=== PATIENT | female | born 1940 | race Caucasian/White ===

== ENCOUNTER → 2016-11-12 09:49 | Day surgery (SDC) | payer MEDICARE ==
[~2016-11-12 09:49] MED LIST: Buffered Lidocaine 1% SYRIN* 3 ML/SYR SYRINGE INTRADERM ONE; Dexamethasone IV* 4 MG/ML 1 ML (4 MG) ONE; DiMENhydriNATE IV* 50 MG/ML VIAL IV PUSH PRN; Famotidine IV* 10 MG/ML 2 ML (20 mg) IV ONE; Famotidine IV* 10 MG/ML 2 ML (20 mg) ONE; KETAMINE HCL* 50 MG/ML 10 ML VIAL ONE; Lidocain 1% EPI 1:100,000 * 30 ML MDV ONE; Lidocaine 2% PF * 5 ML VIAL ONE; Lidocaine 4% TOPICAL* 50 ML TOP.SOLN ONE; Midazolam* 1 MG/ML 5 ML VIAL (5 MG) ONE; Morphine INJ* 2 MG/ML 1 ML SYRINGE IV PRN; Ondansetron INJ* 2 MG/ML VIAL ONE; Oxymetazoline 0.05% NASAL SPR* 15 ML BTL ONE; PROCHLORPERAZINE INJ 5 MG/ML 2 ML VIAL IV PRN; Propofol* 10 MG/ML 20 ML BTL IV PUSH ONE; Scopolamine 1.5 mg* PATCH TRANSDERM PRN; fentaNYL* 50 MCG/ML 2 ML VIAL (100 MCG VIAL) IV PRN; fentaNYL* 50 MCG/ML 2 ML VIAL (100 MCG VIAL) ONE; oxyCODONE/Acetamin 5/325 MG* TAB PO PRN
[2016-11-12 13:04] VITALS: BP 139/61
--- NOTE | 2016-11-13 02:40 | OP ---
DATE OF OPERATION: 11/12/16 - [facility] DATE OF : 44 SURGEON: Jens Cooper MD ANESTHESIOLOGIST: Dominic Copeland MD ANESTHESIA: General laryngeal mask airway anesthesia. PRE-OP DIAGNOSIS: Bilateral nasal polyposis. POST-OP DIAGNOSIS: Bilateral nasal polyposis. OPERATIVE PROCEDURE: Bilateral endoscopic nasal polypectomy. COMPLICATIONS: None. DISPOSITION: Good. SPECIMEN: Left polyp. DESCRIPTION OF PROCEDURE: The patient was taken to the operating room, placed in the supine position on the operating table, laryngeal mask airway anesthesia. She has a history of nasal polyposis, endoscopic sinus surgery in the past. Her nose was packed bilaterally with cottonoids impregnated with oxymetazoline and 4% lidocaine. After several minutes these were used, using the endoscope, nasal cavity was visualized and on the right, she had polyps in the ostiomeatal unit coming from the maxillary sinus and on the left the same but it was an antrochoanal polyp, although only posteriorly. All these were injected with 1% lidocaine with epinephrine. Using both Blakesley and the nasal debrider, I removed the polyps, debrided them, tried to pull them out of the maxillary sinus, but most importantly opened up her OMU and opened up her nasal cavity. The patient tolerated the procedure well with no complications, transferred to the recovery room in stable condition. [id number]/[facility] #: [id number] MELISA
== END | disposition home or self-care (01) ==
LOC: OR 09:49
PROVIDERS: ATTEND Otolaryngology
DX: J33.0 Polyp of nasal cavity (principal); R09.81 Nasal congestion; I10 Essential (primary) hypertension; I25.2 Old myocardial infarction; Z87.891 Personal history of nicotine dependence; I25.10 Atherosclerotic heart disease of native coronary artery without angina pectoris; R25.1 Tremor, unspecified
CPT/HCPCS: 87070; 87073; 87077; 87186; 87205; 88304; A9270-GY; J1100; J2250; J2405; J2704; J3010

== ENCOUNTER 2017-03-23 13:41 | Day surgery (SDC) | payer MEDICARE ==
[~2017-03-23 13:41] MED LIST changes: +Buffered Lidocaine 0.9% SYRIN* 5 ML/SYR SYRINGE INTRADERM ONE; -Buffered Lidocaine 1% SYRIN* 3 ML/SYR SYRINGE INTRADERM ONE; -Dexamethasone IV* 4 MG/ML 1 ML (4 MG) ONE; -DiMENhydriNATE IV* 50 MG/ML VIAL IV PUSH PRN; -Famotidine IV* 10 MG/ML 2 ML (20 mg) ONE; -KETAMINE HCL* 50 MG/ML 10 ML VIAL ONE; -Lidocain 1% EPI 1:100,000 * 30 ML MDV ONE; -Lidocaine 2% PF * 5 ML VIAL ONE; -Lidocaine 4% TOPICAL* 50 ML TOP.SOLN ONE; +Metoclopramide TAB* 10 MG PO ONE; -Midazolam* 1 MG/ML 5 ML VIAL (5 MG) ONE; -Morphine INJ* 2 MG/ML 1 ML SYRINGE IV PRN; -Ondansetron INJ* 2 MG/ML VIAL ONE; -Oxymetazoline 0.05% NASAL SPR* 15 ML BTL ONE; -PROCHLORPERAZINE INJ 5 MG/ML 2 ML VIAL IV PRN; -Propofol* 10 MG/ML 20 ML BTL IV PUSH ONE; -Scopolamine 1.5 mg* PATCH TRANSDERM PRN; -fentaNYL* 50 MCG/ML 2 ML VIAL (100 MCG VIAL) IV PRN; -fentaNYL* 50 MCG/ML 2 ML VIAL (100 MCG VIAL) ONE; -oxyCODONE/Acetamin 5/325 MG* TAB PO PRN
[2017-03-23] MEDS ORDERED: Famotidine IV* 10 MG/ML 2 ML (20 mg) ONE (13:55)
[2017-03-23] MEDS ORDERED: Buffered Lidocaine 0.9% SYRIN* 5 ML/SYR SYRINGE ONE (13:56)
[2017-03-23] MEDS ORDERED: Metoclopramide TAB* 10 MG ONE (13:56)
[2017-03-23] MEDS ORDERED: Lidocaine 2% PF * 5 ML VIAL ONE (15:02)
[2017-03-23] MEDS ORDERED: Midazolam* 1 MG/ML 5 ML VIAL (5 MG) ONE (15:02)
[2017-03-23] MEDS ORDERED: KETAMINE HCL* 50 MG/ML 10 ML VIAL ONE (15:02)
[2017-03-23] MEDS ORDERED: Dexamethasone IV* 4 MG/ML 1 ML (4 MG) ONE (15:02)
[2017-03-23] MEDS ORDERED: Propofol* 10 MG/ML 20 ML BTL IV PUSH ONE (15:02)
[2017-03-23] MEDS ORDERED: fentaNYL* 50 MCG/ML 2 ML VIAL (100 MCG VIAL) ONE (15:02)
[2017-03-23] MEDS ORDERED: Ondansetron INJ* 2 MG/ML VIAL ONE (15:02)
[2017-03-23] MEDS ORDERED: Oxymetazoline 0.05% NASAL SPR* 15 ML BTL ONE (15:44)
[2017-03-23] MEDS ORDERED: Lidocaine 4% TOPICAL* 50 ML TOP.SOLN ONE (15:45)
[2017-03-23] MEDS ORDERED: Lidocaine 1% MPF wEPI 200,000* 30 ML SDV ONE (15:45)
[2017-03-23] MEDS ORDERED: Dexamethasone IV* 4 MG/ML 5 ML VIAL (20 MG) ONE (15:45)
[2017-03-23] MEDS ORDERED: fentaNYL* 50 MCG/ML 2 ML VIAL (100 MCG VIAL) IV PRN (17:31)
[2017-03-23] MEDS ORDERED: Ondansetron INJ* 2 MG/ML VIAL IV PRN (17:31)
--- NOTE | 2017-03-24 06:00 | OP ---
DATE OF OPERATION: 03/23/17 - [facility] DATE OF : 44 SURGEON: Jens Cooper MD. ANESTHESIOLOGIST: Jalil Chavez MD ANESTHESIA: Laryngeal mask anesthesia. PRE-OP DIAGNOSES: Chronic maxillary ethmoidal sinusitis and nasal polyposis. POST-OP DIAGNOSES: Chronic maxillary ethmoidal sinusitis and nasal polyposis. OPERATIVE PROCEDURE: Bilateral endoscopic sinus surgery with nasal polypectomy , debridement of polyps from maxillary sinus, and anterior ethmoidectomies. COMPLICATIONS: None. SPECIMENS: Right nasal polyps and sinus contents to the left side. It was all debrided with a debrider. DISPOSITION: Good. Transferred to the recovery room in stable condition. DESCRIPTION OF PROCEDURE: The patient was taken to the operating room, placed in a supine position on the operating room table, maintained with laryngeal mask airway anesthesia. Her nose were packed bilaterally with cottonoids impregnated with oxymetazoline and 4% lidocaine. She was draped for the surgery. The procedure was done the same bilaterally using the nasal endoscope. The packs were removed and she had polyps protruding from her ostiomeatal units. The polyps and middle turbinates were injected with 1% lidocaine with 1:200,000 epinephrine using a combination of the Blakesley and the debrider, the polyps were pulled out of the maxillary sinuses and the skin was debrided of inflammatory tissue, the polyps were pulled out of the ethmoid region and the anterior bulla was widened. Once this was done, the Stammberger Sinu-Foam was mixed with water and dexamethasone and placed bilaterally lateral to the middle turbinates. The patient tolerated the procedure well, no complications, and transferred to the recovery room in stable condition. [id number]/[facility] #: [id number] MTDD
[2017-03-24 07:14] VITALS: BP 134/61
== END 2017-03-23 19:21 | disposition home or self-care (01) ==
LOC: OR 13:41
PROVIDERS: ATTEND Otolaryngology
DX: J32.2 Chronic ethmoidal sinusitis (principal); J32.0 Chronic maxillary sinusitis; J33.8 Other polyp of sinus; Z87.891 Personal history of nicotine dependence; Z79.899 Other long term (current) drug therapy; I10 Essential (primary) hypertension; I25.2 Old myocardial infarction
CPT/HCPCS: 88304; A9270-GY; J1100; J2001; J2250; J2405; J2704; J3010

== ENCOUNTER 2017-04-24 18:57 | Emergency (ER) | payer MEDICARE ==
[2017-04-24] MEDS ORDERED: methylPREDNISolone 125 MG* 2 ML VIAL IV ONE (20:24)
[2017-04-24] MEDS ORDERED: Famotidine TAB* 20 MG PO ONE (20:24)
[2017-04-24] MEDS ORDERED: diPHENhydraMINE IV* 50 MG/ML 1 ml VIAL (BENADRYL) IM ONE (20:25)
[2017-04-24] MEDS ORDERED: methylPREDNISolone 125 MG* 2 ML VIAL IM ONE (20:38)
--- NOTE | 2017-04-29 11:38 | UC ---
Skin Complaint HPI - History of Current Complaint Chief Complaint: UCSkin Time Seen by Provider: 04/24/17 20:18 Stated Complaint: SWOLLEN FACE Hx Obtained From: Patient Onset/Duration: Sudden Onset Skin Exposure Onset/Duration: Days Ago Onset Severity: Moderate Current Severity: Moderate Pain Intensity: 0 Pain Scale Used: 0-10 Numeric - Allergy/Home Medications Allergies/Adverse Reactions: Allergies Allergy/AdvReac Type Severity Reaction Status Date / Time Codeine Allergy Unknown Verified 04/24/17 19:50 Reaction Details cats Allergy Itching Uncoded 04/24/17 19:50 dogs Allergy Itching Uncoded 04/24/17 19:50 Enviromental Allergy Unknown Uncoded 04/24/17 19:50 Reaction Details Review of Systems Constitutional: Negative Skin: Rash Eyes: Negative ENT: Negative Respiratory: Negative Cardiovascular: Negative Gastrointestinal: Negative Genitourinary: Negative Motor: Negative Neurovascular: Negative Musculoskeletal: Negative Neurological: Negative Psychological: Negative All Other Systems Reviewed And Are Negative: Yes PMH/Surg Hx/FS Hx/Imm Hx Previously Healthy: Yes - Surgical History Surgical History: Yes Surgery Procedure, Year, and Place: TUBAL LIGATION. SINUS SURGERY 1994, 1998 & 2017. EAR SURGERY AN . 2016- LEFT BREAST DUCT EXCISION. Allergy shots for environmental allergies, Dr Scales - Social History Alcohol Use: Occasionally Substance Use Type: None Smoking Status (MU): Former Smoker Amount Used/How Often: X 2 YEARS Have You Smoked in the Last Year: No When Did the Patient Quit Smoking/Using Tobacco: IN TEENS Physical Exam Triage Information Reviewed: Yes Vital Signs: Initial Vital Signs Temp 36.4 C 04/24/17 19:43 Pulse 60 04/24/17 19:43 Resp 17 04/24/17 19:43 Pulse Ox 98 04/24/17 19:43 Vital Signs Reviewed: Yes Eye Exam: Normal ENT Exam: Normal Dental Exam: Normal Neck exam: Normal Neck: Positive: 1 Respiratory Exam: Normal Cardiovascular Exam: Normal Abdominal Exam: Normal Musculoskeletal Exam: Normal Neurological Exam: Normal Psychological Exam: Normal Skin: Positive: rashes Course/Dx - Diagnoses Provider Diagnoses: rash. contact dermatitis Discharge - Discharge Plan Condition: Stable Disposition: HOME Prescriptions: Famotidine TAB* [Pepcid 20 MG TAB*] 20 mg PO DAILY #30 tab LoraTADine TAB(NF) [Claritin 10 MG TAB(NF)] 10 mg PO DAILY #30 tab Olopatadine 0.1% OPHTH (NF) [Patanol 0.1% OPHTH (NF)] 1 drop BOTH EYES Q6H PRN # 1 btl PRN Reason: Itching predniSONE TAB* [Deltasone TAB*] 40 mg PO DAILY #10 tab Patient Education Materials: Contact Dermatitis (ED) Referrals: Vicente Sims MD [Primary Care Provider] -
== END 2017-04-24 21:35 | disposition home or self-care (01) ==
LOC: UCEAST 18:57
DX: L25.9 Unspecified contact dermatitis, unspecified cause (principal); Z88.5 Allergy status to narcotic agent; Z87.891 Personal history of nicotine dependence
CPT/HCPCS: 96372; 99212; A9270-GY; G0463; J1200; J2930

== ENCOUNTER 2018-08-30 07:10 | Day surgery (SDC) | payer MEDICARE ==
[~2018-08-30 07:10] MED LIST changes: +Acetaminophen TAB* 325 MG PO PRN; -Buffered Lidocaine 0.9% SYRIN* 5 ML/SYR SYRINGE INTRADERM ONE; +Buffered Lidocaine 1% SYRIN* 1 ML/SYRINGE INTRADERM ONE; -Famotidine IV* 10 MG/ML 2 ML (20 mg) IV ONE; -Metoclopramide TAB* 10 MG PO ONE
[2018-08-30] MEDS ORDERED: Midazolam* 1 MG/ML 2 ML VIAL (2 MG) ONE (09:16)
[2018-08-30] MEDS ORDERED: Cyclopentolate 1% OPTH.SOL* 2 ML BTL ONE (09:17)
[2018-08-30] MEDS ORDERED: Neomycin/Polymy/Dex OPTH.SUSP* MAXITROL 0.1% 5 ML ONE (09:17)
[2018-08-30] MEDS ORDERED: Lidocaine 1%* 5 ML VIAL ONE (09:17)
[2018-08-30] MEDS ORDERED: Lidocaine 2% EPI 1:200000 MPF*10-20 ML VIAL ONE (09:17)
[2018-08-30] MEDS ORDERED: Povidone Iodine 5% OPTH* 30 ML BTL ONE (09:17)
[2018-08-30] MEDS ORDERED: Ketorolac 0.5% OPHTH (NF) 0.5 % 5 ML BTL ONE (09:17)
[2018-08-30] MEDS ORDERED: acetaZOLAMIDE TAB* 250 MG ONE (09:17)
[2018-08-30] MEDS ORDERED: Proparacaine 0.5% OPHTH.SOL* 15 ML BTL ONE (09:17)
[2018-08-30] MEDS ORDERED: Phenylephrine 2.5% OPTH.SOL* 2 ML BTL ONE (09:17)
[2018-08-30 09:58] VITALS: BP 146/52
--- NOTE | 2018-08-30 10:12 | OP ---
DATE OF OPERATION: 08/30/18 [facility] DATE OF : 44 SURGEON: Dimitri Jorge M.D. PREOPERATIVE DIAGNOSIS: Cataract, left eye. POSTOPERATIVE DIAGNOSIS: Cataract, left eye. OPERATIVE PROCEDURE: Extracapsular cataract extraction with intraocular lens implant, left eye. DESCRIPTION OF PROCEDURE: The patient was brought to the operating room after being given 1/2% Alcaine with epinephrine drops in the preoperative area. The eye was prepped and draped in the usual sterile fashion. Sterile drape and eyelid speculum were placed. Again, topical 1/2% Alcaine with epinephrine was given. A paracentesis incision was made at the 3 o'clock position with the No.75 blade. Clear cornea incision 2.2 x 2.2-mm was created at the 6 o'clock position starting at the anterior limbus using the 2.2-mm keratome. The anterior chamber was irrigated with 0.4 mL of 1% non-preservative intracameral lidocaine and filled with DisCoVisc. A capsulorrhexis was completed using the cystotome and the Utrata forceps. Hydrodissection was performed with balanced salt solution. The lens nucleus was removed with the Phacoemulsification handpiece without incident. Cortex was removed with the irrigation-aspiration handpiece. The capsular bag was re-inflated using DisCoVisc and an [id number] 15.5 implant was inserted with the shooter, oriented to the 155-degree meridian. Horizontal reference adriel made with the patient seated in the preoperative area. The irrigation-aspiration handpiece was used to remove all residual DisCoVisc. The eye was refilled with balanced salt solution and the wound checked and found to be watertight. Topical Maxitrol drops were given. [id number]/[facility] #: [id number] [facility]
== END 2018-08-30 10:07 | disposition home or self-care (01) ==
LOC: OREAST 07:10
PROVIDERS: ATTEND Specialist
DX: H25.812 Combined forms of age-related cataract, left eye (principal); H35.372 Puckering of macula, left eye; H04.123 Dry eye syndrome of bilateral lacrimal glands; I25.9 Chronic ischemic heart disease, unspecified; E78.5 Hyperlipidemia, unspecified; I10 Essential (primary) hypertension; G25.0 Essential tremor; I25.10 Atherosclerotic heart disease of native coronary artery without angina pectoris
CPT/HCPCS: A9270-GY; J2250; V2787

== ENCOUNTER 2019-02-26 10:37 | Emergency (ER) | payer MEDICARE ==
--- OUTSIDE RECORDS SUMMARY | 2019-02-26 10:41 | XMS REPORT | Continuity of Care Document ---
:1940 External Reference #:[id number] Author Name Ifeoma Bermudez Care Team Providers Name Role Phone Dimitri Cooper MD Care Team Information Fur Liner Unavailable Vicente Sims MD Primary Care Physician Unavailable Payers Date Identification Numbers Payment Provider Subscriber Policy Number: [id number] [employer] [place] Chantel Olson PayID: [id number] [address] [place] [address] Policy Number: [id number] [facility] Chantel Olson PayID: [id number] [address] [place] [address] Problems Active Problems Provider Date Allergic rhinitis due to pollen Zach Garcia MD Onset: 03/09/2017 Allergic rhinitis Zach Garcia MD Onset: 03/09/2017 Nasal polyp Zach Garcia MD Onset: 03/09/2017 Social History Type Date Description Comments Sex Unknown Tobacco Use Start: Unknown Patient has never smoked Smoking Status Reviewed: 02/22/18 Patient has never smoked Allergies, Adverse Reactions, Alerts Active Allergies Reaction Severity Comments Date Codeine 03/09/2017 Medications Active Medications SIG Qnty Indications Ordering Provider Date Qnasl 2 puffs each 26.1gm J30.89 Zach Rogers 02/22/2018 80mcg/Act Aerosol nostril every MD Jose day Vitamin D 4000 a day Unknown 1000Unit Tablets Propranolol HCL Unknown 80mg Tablets Hydrochlorothiazide Unknown 12.5mg Capsules Diltiazem HCL ER Coated 1 by mouth Unknown Beads every day 180mg Caps ER 24HR Primidone Unknown 50mg Tablets Rosuvastatin Calcium Unknown 20mg Tablets Levocetirizine take 1 tablet Unknown Dihydrochloride (5 mg) by 5mg Tablets oral route once daily as needed Irbesartan Unknown 150mg Tablets Montelukast Sodium take one Unknown 10mg Tablets tablet by mouth daily in the evening Fluticasone Propionate spray 2 Unknown 50mcg/Act sprays in Suspension each nostril daily Vitamin C 1 by mouth Unknown 1000mg Tablets every day Vitamin E 1 by mouth Unknown 400Unit Capsules every day Calcium 1000 + D Unknown [id number] Tablets Aspirin Unknown 81mg Tablets DR Foster Unknown 500mg Chewtabs Medications Administered in Office Medication SIG Qnty Indications Ordering Provider Date Allergy Injection 2 Or More Zach Garcia MD 01/24/2019 Injection Allergy Injection 2 Or More Zach Garcia MD 01/10/2019 Injection Allergy Injection 2 Or More Zach Garcia MD 12/27/2018 Injection Allergy Injection 2 Or More Zach Garcia MD 12/13/2018 Injection Allergy Injection 2 Or More Zach Garcia MD 11/29/2018 Injection Allergy Injection 2 Or More Zach Garcia MD 11/15/2018 Injection Allergy Injection 2 Or More Zach Garcia MD 11/01/2018 Injection Allergy Injection 2 Or More Zach Garcia MD 10/18/2018 Injection Allergy Injection 2 Or More Zach Garcia MD 10/04/2018 Injection Allergy Injection 2 Or More Zach Garcia MD 09/20/2018 Injection Allergy Injection 2 Or More Zach Garcia MD 08/23/2018 Injection Allergy Injection 2 Or More Zach Garcia MD 07/26/2018 Injection Allergy Injection 2 Or More Zach Garcia MD 06/28/2018 Injection Allergy Injection 2 Or More Zach Garcia MD 05/31/2018 Injection Allergy Injection 2 Or More Zach Garcia MD 05/03/2018 Injection Allergy Injection 2 Or More Zach Garcia MD 04/19/2018 Injection Allergy Injection 2 Or More Zach Garcia MD 04/05/2018 Injection Allergy Injection 2 Or More Zach Garcia MD 03/22/2018 Injection Allergy Injection 2 Or More Zach Garcia MD 03/08/2018 Injection Allergy Injection 2 Or More Zach Garcia MD 02/22/2018 Injection Allergy Injection 2 Or More Zach Garcia MD 02/10/2018 Injection Allergy Injection 2 Or More Zach Garcia MD 01/25/2018 Injection Allergy Injection 2 Or More Zach Garcia MD 01/09/2018 Injection Allergy Injection 2 Or More Zach Garcia MD 12/28/2017 Injection Allergy Injection 2 Or More Zach Garcia MD 12/14/2017 Injection Allergy Injection 2 Or More Zach Garcia MD 11/30/2017 Injection Allergy Injection 2 Or More Zach Garcia MD 11/23/2017 Injection Allergy Injection 2 Or More Zach Garcia MD 11/16/2017 Injection Allergy Injection 2 Or More Zach Garcia MD 11/09/2017 Injection Allergy Injection 2 Or More Zach Garcia MD 11/02/2017 Injection Allergy Injection 2 Or More Zach Garcia MD 10/26/2017 Injection Allergy Injection 2 Or More Zach Garcia MD 10/19/2017 Injection Allergy Injection 2 Or More Zach Garcia MD 10/12/2017 Injection Allergy Injection 2 Or More Zach Garcia MD 10/03/2017 Injection Allergy Injection 2 Or More Zach Garcia MD 09/28/2017 Injection Allergy Injection 2 Or More Zach Garcia MD 09/21/2017 Injection Allergy Injection 2 Or More Zach Garcia MD 09/14/2017 Injection Allergy Injection 2 Or More Zach Garcia MD 09/07/2017 Injection Allergy Injection 2 Or More Zach Garcia MD 08/31/2017 Injection Allergy Injection 2 Or More Zach Garcia MD 08/24/2017 Injection Allergy Injection 2 Or More Zach Garcia MD 08/17/2017 Injection Allergy Injection 2 Or More Zach Garcia MD 08/10/2017 Injection Allergy Injection 2 Or More Zach Garcia MD 08/03/2017 Injection Allergy Injection 2 Or More Zach Garcia MD 07/27/2017 Injection Allergy Injection 2 Or More Zach Garcia MD 07/20/2017 Injection Allergy Injection 2 Or More Zach Garcia MD 07/13/2017 Injection Allergy Injection 2 Or More Zach Garcia MD 07/06/2017 Injection Allergy Injection 2 Or More Zach Garcia MD 06/29/2017 Injection Allergy Injection 2 Or More Zach Garcia MD 06/22/2017 Injection Allergy Injection 2 Or More Zach Garcia MD 06/15/2017 Injection Allergy Injection 2 Or More Zach Garcia MD 06/08/2017 Injection Allergy Injection 2 Or More Zach Garcia MD 06/01/2017 Injection Allergy Injection 2 Or More Zach Garcia MD 05/25/2017 Injection Allergy Injection 2 Or More Zach Garcia MD 05/18/2017 Injection Allergy Injection 2 Or More Zach Garcia MD 05/11/2017 Injection Allergy Injection 2 Or More Zach Garcia MD 05/04/2017 Injection Allergy Injection 2 Or More Zach Garcia MD 04/20/2017 Injection Allergy Injection 2 Or More Zach Garcia MD 04/13/2017 Injection Vital Signs Date Vital Result Comment 02/02/2019 9:29am BP Systolic 136 mmHg BP Diastolic 70 mmHg Height 54 inches 4'6" Weight 153.00 lb BMI (Body Mass Index) 36.9 kg/m2 Heart Rate 60 /min Respiratory Rate 18 /min O2 % BldC Oximetry 96 % 02/22/2018 9:29am BP Systolic 126 mmHg BP Diastolic 62 mmHg Height 54 inches 4'6" Weight 152.00 lb BMI (Body Mass Index) 36.6 kg/m2 Heart Rate 62 /min Respiratory Rate 18 /min Body Temperature 98.1 F O2 % BldC Oximetry 5 % 04/06/2017 9:10am Height 54 inches 4'6" Weight 156.00 lb BMI (Body Mass Index) 37.6 kg/m2 Heart Rate 64 /min Respiratory Rate 14 /min Body Temperature 97.4 F O2 % BldC Oximetry 98 % Procedures Date Code Description Status 01/24/2019 19389 Allergy Injection 2 Or More Completed 01/10/2019 49496 Allergy Injection 2 Or More Completed 12/27/2018 61322 Allergy Injection 2 Or More Completed 12/13/2018 06906 Allergy Injection 2 Or More Completed 11/29/2018 61849 Allergy Injection 2 Or More Completed 11/15/2018 76404 Allergy Injection 2 Or More Completed 11/01/2018 25474 Allergy Injection 2 Or More Completed 10/18/2018 92733 Allergy Injection 2 Or More Completed 10/05/2018 29915 Allergy Antigens Single Or Multiple Completed 10/04/2018 35605 Allergy Injection 2 Or More Completed 09/20/2018 40156 Allergy Injection 2 Or More Completed 08/23/2018 31449 Allergy Injection 2 Or More Completed 07/26/2018 95050 Allergy Injection 2 Or More Completed 06/28/2018 39353 Allergy Injection 2 Or More Completed 05/31/2018 73477 Allergy Injection 2 Or More Completed 05/03/2018 41400 Allergy Injection 2 Or More Completed 04/19/2018 35719 Allergy Injection 2 Or More Completed 04/05/2018 70287 Allergy Injection 2 Or More Completed 03/22/2018 93025 Allergy Injection 2 Or More Completed 03/08/2018 23128 Allergy Injection 2 Or More Completed 02/23/2018 90641 Allergy Antigens Single Or Multiple Completed 02/22/2018 05081 Allergy Injection 2 Or More Completed 02/10/2018 39413 Allergy Injection 2 Or More Completed 01/25/2018 37774 Allergy Injection 2 Or More Completed 01/09/2018 74021 Allergy Injection 2 Or More Completed 12/28/2017 26321 Allergy Injection 2 Or More Completed 12/14/2017 63622 Allergy Injection 2 Or More Completed 11/30/2017 60006 Allergy Injection 2 Or More Completed 11/23/2017 67905 Allergy Injection 2 Or More Completed 11/16/2017 93137 Allergy Injection 2 Or More Completed 11/09/2017 73598 Allergy Injection 2 Or More Completed 11/02/2017 83209 Allergy Injection 2 Or More Completed 10/26/2017 57611 Allergy Injection 2 Or More Completed 10/19/2017 59233 Allergy Injection 2 Or More Completed 10/12/2017 21120 Allergy Injection 2 Or More Completed 10/03/2017 98219 Allergy Injection 2 Or More Completed 09/28/2017 92279 Allergy Injection 2 Or More Completed 09/21/2017 92303 Allergy Injection 2 Or More Completed 09/14/2017 73607 Allergy Injection 2 Or More Completed 09/07/2017 86771 Allergy Injection 2 Or More Completed 08/31/2017 38620 Allergy Injection 2 Or More Completed 08/24/2017 29664 Allergy Injection 2 Or More Completed 08/17/2017 07217 Allergy Injection 2 Or More Completed 08/10/2017 12563 Allergy Injection 2 Or More Completed 08/03/2017 14968 Allergy Injection 2 Or More Completed 07/27/2017 22940 Allergy Injection 2 Or More Completed 07/20/2017 91185 Allergy Injection 2 Or More Completed 07/13/2017 01903 Allergy Injection 2 Or More Completed 07/06/2017 18454 Allergy Injection 2 Or More Completed 06/29/2017 81524 Allergy Injection 2 Or More Completed 06/22/2017 13049 Allergy Injection 2 Or More Completed 06/15/2017 60933 Allergy Injection 2 Or More Completed 06/08/2017 92253 Allergy Injection 2 Or More Completed 06/01/2017 34959 Allergy Injection 2 Or More Completed 05/25/2017 90393 Allergy Injection 2 Or More Completed 05/18/2017 36976 Allergy Injection 2 Or More Completed 05/11/2017 58001 Allergy Injection 2 Or More Completed 05/04/2017 85567 Allergy Injection 2 Or More Completed 04/20/2017 83192 Allergy Injection 2 Or More Completed 04/13/2017 69342 Allergy Injection 2 Or More Completed 04/06/2017 53189 Allergy Antigens Single Or Multiple Completed 03/09/2017 27741 Allergy Tests Percutaneous W/ Allergenic Extracts Completed Encounters Type Date Location Provider Dx Diagnosis Office Visit 02/22/2018 9:30a CHERIE Hanna J30.89 Other allergic rhinitis J30.1 Allergic rhinitis due to pollen Office Visit 04/06/2017 8:45a Maco Garcia J33.0 Polyp of nasal MD cavity J30.89 Other allergic rhinitis J30.1 Allergic rhinitis due to pollen Office Visit 03/09/2017 10:30a Anthony Thompson30.1 Allergic rhinitis MD due to pollen J30.89 Other allergic rhinitis J33.0 Polyp of nasal cavity Plan of Treatment Future Appointment(s):02/07/2019 10:35 am - Injection 1 at [place]
--- OUTSIDE RECORDS SUMMARY | 2019-02-26 10:41 | XMS REPORT | Continuity of Care Document ---
:1940 External Reference #:[id number] Author Name Zach Garcia MD Address [address] [address] [place] [address] Care Team Providers Name Role Phone Dimitri Cooper MD Care Team Information Swim Coach Unavailable Vicente Sims MD Primary Care Physician Unavailable Payers Date Identification Numbers Payment Provider Subscriber Policy Number: [id number] [employer] [place] Chantel Olson PayID: [id number] [address] [place] [address] Policy Number: [id number] [facility] Chantel Del Rosario Whitney PayID: [id number] [address] [place] [address] Problems Active Problems Provider Date Allergic rhinitis due to pollen Zach Garcia MD Onset: 03/09/2017 Allergic rhinitis Zach Garcia MD Onset: 03/09/2017 Nasal polyp Zach Garcia MD Onset: 03/09/2017 Polyp of nasal cavity Zach Garcia MD Onset: 02/02/2019 Family History Date Family Member(s) Observation Comments General No Current Problems Social History Type Date Description Comments Sex Unknown Smoke-Free Home is smoke-free Tobacco Use Start: Unknown Patient has never smoked Smoking Status Reviewed: 02/02/19 Patient has never smoked Allergies, Adverse Reactions, Alerts Active Allergies Reaction Severity Comments Date Codeine 03/09/2017 Medications Active Medications SIG Qnty Indications Ordering Date Provider Dupixent administer 300 4ml J30.1 Zach Rogers 300mg/2ML Soln Prefill mg (2cc) every 2 MD Jose 9 Syringe weeks sq Qnasl 2 puffs each 26.1gm J30.89 Zach Rogers 80mcg/Act Aerosol nostril every MD Jose 8 day Tums Unknown 500mg Chewtabs 0 Aspirin Unknown 81mg Tablets DR 0 Calcium 1000 + D Unknown 0 [id number] Tablets Vitamin E 1 by mouth every Unknown 400Unit Capsules day 0 Vitamin C 1 by mouth every Unknown 1000mg Tablets day 0 Fluticasone Propionate spray 2 sprays Unknown in each nostril 0 50mcg/Act Suspension daily Montelukast Sodium take one tablet Unknown 10mg Tablets by mouth daily 0 in the evening Irbesartan Unknown 150mg Tablets 0 Levocetirizine take 1 tablet (5 Unknown Dihydrochloride mg) by oral 0 5mg Tablets route once daily as needed Rosuvastatin Calcium Unknown 20mg 0 Tablets Primidone Unknown 50mg Tablets 0 Diltiazem HCL ER Coated 1 by mouth every Unknown Beads day 0 180mg Caps ER 24HR Hydrochlorothiazide Unknown 12.5mg 0 Capsules Propranolol HCL Unknown 80mg Tablets 0 Vitamin D 4000 a day Unknown 1000Unit Tablets 0 Medications Administered in Office Medication SIG Qnty [...] 05/18/2017 Injection Allergy Injection 2 Or More Zcah Garcia MD 05/11/2017 Injection Allergy Injection 2 [...] % Procedures Date Code Description Status 01/24/2019 35738 Allergy Injection 2 Or More Completed 01/10/2019 64818 Allergy Injection 2 Or More Completed 12/27/2018 73089 Allergy Injection 2 Or More Completed 12/13/2018 81596 Allergy Injection 2 Or More Completed 11/29/2018 40818 Allergy Injection 2 Or More Completed 11/15/2018 65146 Allergy Injection 2 Or More Completed 11/01/2018 67876 Allergy Injection 2 Or More Completed 10/18/2018 62451 Allergy Injection 2 Or More Completed 10/05/2018 93773 Allergy Antigens Single Or Multiple Completed 10/04/2018 61005 Allergy Injection 2 Or More Completed 09/20/2018 03894 Allergy Injection 2 Or More Completed 08/23/2018 13487 Allergy Injection 2 Or More Completed 07/26/2018 97436 Allergy Injection 2 Or More Completed 06/28/2018 55503 Allergy Injection 2 Or More Completed 05/31/2018 02767 Allergy Injection 2 Or More Completed 05/03/2018 43479 Allergy Injection 2 Or More Completed 04/19/2018 84521 Allergy Injection 2 Or More Completed 04/05/2018 80998 Allergy Injection 2 Or More Completed 03/22/2018 09948 Allergy Injection 2 Or More Completed 03/08/2018 33750 Allergy Injection 2 Or More Completed 02/23/2018 45798 Allergy Antigens Single Or Multiple Completed 02/22/2018 61065 Allergy Injection 2 Or More Completed 02/10/2018 12479 Allergy Injection 2 Or More Completed 01/25/2018 88041 Allergy Injection 2 Or More Completed 01/09/2018 69844 Allergy Injection 2 Or More Completed 12/28/2017 98474 Allergy Injection 2 Or More Completed 12/14/2017 35006 Allergy Injection 2 Or More Completed 11/30/2017 44483 Allergy Injection 2 Or More Completed 11/23/2017 14565 Allergy Injection 2 Or More Completed 11/16/2017 40047 Allergy Injection 2 Or More Completed 11/09/2017 76933 Allergy Injection 2 Or More Completed 11/02/2017 04261 Allergy Injection 2 Or More Completed 10/26/2017 50989 Allergy Injection 2 Or More Completed 10/19/2017 18850 Allergy Injection 2 Or More Completed 10/12/2017 70159 Allergy Injection 2 Or More Completed 10/03/2017 81856 Allergy Injection 2 Or More Completed 09/28/2017 54723 Allergy Injection 2 Or More Completed 09/21/2017 68711 Allergy Injection 2 Or More Completed 09/14/2017 78812 Allergy Injection 2 Or More Completed 09/07/2017 70874 Allergy Injection 2 Or More Completed 08/31/2017 84193 Allergy Injection 2 Or More Completed 08/24/2017 47695 Allergy Injection 2 Or More Completed 08/17/2017 55345 Allergy Injection 2 Or More Completed 08/10/2017 33775 Allergy Injection 2 Or More Completed 08/03/2017 58527 Allergy Injection 2 Or More Completed 07/27/2017 14619 Allergy Injection 2 Or More Completed 07/20/2017 19243 Allergy Injection 2 Or More Completed 07/13/2017 58953 Allergy Injection 2 Or More Completed 07/06/2017 17542 Allergy Injection 2 Or More Completed 06/29/2017 15212 Allergy Injection 2 Or More Completed 06/22/2017 20297 Allergy Injection 2 Or More Completed 06/15/2017 60443 Allergy Injection 2 Or More Completed 06/08/2017 34572 Allergy Injection 2 Or More Completed 06/01/2017 69002 Allergy Injection 2 Or More Completed 05/25/2017 45070 Allergy Injection 2 Or More Completed 05/18/2017 23682 Allergy Injection 2 Or More Completed 05/11/2017 07500 Allergy Injection 2 Or More Completed 05/04/2017 99391 Allergy Injection 2 Or More Completed 04/20/2017 93920 Allergy Injection 2 Or More Completed 04/13/2017 93565 Allergy Injection 2 Or More Completed 04/06/2017 80330 Allergy Antigens Single Or Multiple Completed 03/09/2017 75782 Allergy Tests Percutaneous W/ Allergenic Extracts Completed Encounters Type Date Location Provider Dx Diagnosis Office Visit 02/22/2018 9:30a CHERIE Hanna J30.89 Other allergic rhinitis J30.1 Allergic rhinitis due to pollen Office Visit 04/06/2017 8:45a Maco Garcia, J33.0 Polyp of nasal MD cavity J30.89 Other allergic rhinitis J30.1 Allergic rhinitis due to pollen Office Visit 03/09/2017 10:30a [facility] Zach Garcia J30.1 Allergic rhinitis MD due to pollen J30.89 Other allergic rhinitis J33.0 Polyp of nasal cavity Plan of Treatment Future Appointment(s):02/07/2019 10:35 am - Injection 1 at [facility]/02/2019 - Zach Garcia MDJ30.1 Allergic rhinitis due to pollenNew Medication: Dupixent 300 mg/2ML - administer 300 mg (2cc) every 2 weeks sqJ30.89 Other allergic pwiwjutnV01.0 Polyp of nasal cavity
[2019-02-26 10:59] VITALS: BP 145/67
--- NOTE | 2019-02-26 12:03 | UC ---
Laceration HPI - HPI Summary HPI Summary: 78 year old female who cut the lateral side of her thumb when slicing with a mandolin slicer yesterday. - History Of Current Complaint Chief Complaint: UCLaceration Stated Complaint: THUMB LACERATION Time Seen by Provider: 02/26/19 12:03 Hx Obtained From: Patient Laceration Location: Finger - Left thumb Mechanism Of Injury: Sharp Trauma Onset/Duration: Sudden Onset Severity: Mild Pain Intensity: 5 Aggravating Factors: Movement - Bled a lot yesterday but not today - Allergies/Home Medications Allergies/Adverse Reactions: Allergies Allergy/AdvReac Type Severity Reaction Status Date / Time codeine Allergy Severe RESPIRATORY Verified 02/26/19 10:59 FEELING LIKE HAVING A HEART ATTACK cats Allergy Intermediate Itching Uncoded 02/26/19 10:59 dogs Allergy Intermediate Itching Uncoded 02/26/19 10:59 Enviromental Allergy Intermediate stuffy, Uncoded 02/26/19 10:59 congestion Home Medications: Home Medications Cyclosporine 0.05% OPHTH (NF) [Restasis 0.05% OPHTH] 1 drop BOTH EYES BID [History Confirmed 02/26/19] PMH/Surg Hx/FS Hx/Imm Hx Previously Healthy: Yes - Surgical History Surgical History: Yes Surgery Procedure, Year, and Place: TUBAL LIGATION. SINUS SURGERY X 4 - 1994, 1998 & 2017 &. EAR SURGERY AN INFANT. 2016- LEFT BREAST DUCT EXCISION. [id number]/2019 - Family History Known Family History: Positive: Hypertension - Social History Alcohol Use: Occasionally Substance Use Type: None Smoking Status (MU): Former Smoker Amount Used/How Often: X 2 YEARS Have You Smoked in the Last Year: No When Did the Patient Quit Smoking/Using Tobacco: IN TEENS Review of Systems All Other Systems Reviewed And Are Negative: Yes Skin: Positive: Other - 0.5 cm laceration lateral aspect left thumb Is Patient Immunocompromised?: No Physical Exam Triage Information Reviewed: Yes Appearance: Well-Appearing, No Pain Distress, Well-Nourished Vital Signs: Initial Vital Signs Temp 98 F 02/26/19 10:56 Pulse 55 02/26/19 10:56 Resp 16 02/26/19 10:56 BP 145/67 02/26/19 10:56 Pulse Ox 100 02/26/19 10:56 Vital Signs Reviewed: Yes Musculoskeletal: Positive: Strength Intact, ROM Intact Neurological: Positive: Alert, Muscle Tone Normal Psychological Exam: Normal Skin: Positive: Other - 0.5 cm laceration lateral aspect left thumb, no signs of infection. Good ROM and good finger strength with flexion and extension against resistance. Laceration Course/Dx - Course/Dx Course Of Treatment: Tdap given here. Bacitracin and bandaid applied - Diagnosis Provider Diagnosis: Laceration of left thumb Discharge - Sign-Out/Discharge Documenting (check all that apply): Patient Departure All imaging exams completed and their final reports reviewed: No Studies - Discharge Plan Condition: Good Disposition: HOME Patient Education Materials: Tdap and Td Vaccines for Adults (ED) Referrals: Vicente Sims MD [Primary Care Provider] - Additional Instructions: Change the bandaid daily and watch for signs of infection. Follow up with your primary care provider if any worsening. - Billing Disposition and Condition Condition: GOOD Disposition: Home
[2019-02-26] MEDS ORDERED: Tetan/Diph/Pertus SYR(Tdap)* 0.5 ML SYR(BOOSTRIX) use SYR contains LATEX IM ONE (12:06)
== END 2019-02-26 12:35 | disposition home or self-care (01) ==
LOC: UCEAST 10:37
DX: S61.012A Laceration without foreign body of left thumb without damage to nail, initial encounter (principal); W26.0XXA Contact with knife, initial encounter; Y93.G9 Activity, other involving cooking and grilling; Y92.010 Kitchen of single-family (private) house as the place of occurrence of the external cause; Y99.8 Other external cause status; Z88.5 Allergy status to narcotic agent; Z87.891 Personal history of nicotine dependence
CPT/HCPCS: 90471; 90715; 99212; G0463

== ENCOUNTER 2019-09-17 11:18 | Day surgery (SDC) | payer MEDICARE ==
--- NOTE | 2019-09-12 07:24 | HP ---
PREOPERATIVE HISTORY AND PHYSICAL: DATE OF ADMISSION: 09/17/19 ATTENDING PHYSICIAN: Dr. Quirino Gage.* (DICTATED BY CHERIE MEDINA) CHIEF COMPLAINT: Left long finger mass. HISTORY OF PRESENT ILLNESS: The patient is a 78-year-old left hand-dominant female who noticed a bump on her left middle finger that began to develop approximately a year ago without known cause. It slowly became larger and larger over the last year. The mass is typically nontender and only painful if she bumps it. It does not restrict her range of motion and she has full use of the hand. She has never had anything like this before. She denies a history of rheumatoid arthritis or any other known inflammatory diseases. She has no numbness or tingling in the digit. PAST MEDICAL HISTORY: Significant for hypertension, coronary artery disease, cataracts, hyperlipidemia, arthritis, essential tremor. PAST SURGICAL HISTORY: Cataract removal August 2018 x2 and eyelid lift in 2019 as well. She denies anesthetic complications with any of these procedures and has never had a blood clot. FAMILY HISTORY: Positive for cancer, diabetes, and heart disease. SOCIAL HISTORY: She lives with her and is retired. She is a former smoker who quit in the 1960s. She occasionally consumes alcohol and tries to exercise on a regular basis. CURRENT MEDICATIONS: 1. Primidone 50 mg 1 tab by mouth q.a.m. and 1 tab by mouth at noon. 2. Propranolol HCl ER 160 mg 1 tab by mouth daily. 3. Diltiazem HCl ER 180 mg 1 tab by mouth daily. 4. Levocetirizine dihydrochloride 5 mg 1 tab p.o. daily. 5. Calcium plus D 1 tab p.o. daily. 6. Aspirin 81 mg one tab p.o. daily. 7. Vitamin C 1 p.o. daily. 8. Vitamin E 100 units 1 time daily. 9. Irbesartan 150 mg 1 tab by mouth daily. 10. Fluticasone propionate 50 mcg/ACT 2 sprays each nostril daily. 11. Hydrochlorothiazide 12.5 mg 1 tab p.o. daily. 12. Rosuvastatin calcium 20 mg 1 tab by mouth daily. 13. Montelukast sodium 10 mg 1 tab by mouth daily. 14. Vitamin B12 100 mcg 1 by mouth daily. 15. Dupixent 300 mg - 2 mL every other week. ALLERGIES: CODEINE, ANIMAL DANDER and DOXYCYCLINE. REVIEW OF SYSTEMS: Fourteen systems are reviewed with the patient today and are negative for fevers, chills, nausea, vomiting, chest pain or shortness of breath with exertion and all other systems are negative. PHYSICAL EXAMINATION GENERAL: She is a well-developed, well-nourished female, seated in exam chair in no acute distress with appropriate affect. VITAL SIGNS: Height 64 inches, weight 154 pounds, pulse 64, blood pressure 144/ 78. HEENT: Normocephalic, atraumatic. Hearing and vision are grossly intact. Extraocular movements intact. NECK: The trachea is midline and symmetrical. LUNGS: Unlabored breathing. No wheezes, rales, or rhonchi appreciated. CARDIO: Regular rate and rhythm. Normal S1, S2. No murmurs, rubs, or gallops noted. ABDOMEN: Nondistended. Bowel sounds present. MUSCULOSKELETAL: Left hand: Skin is dry and intact without open wounds or abrasions. No erythema, ecchymosis or edema is appreciated. She is able to move all digits of the hand easily and forms a full tight fist with all digits coming down to the palmar crease. A pea-size hard movable mass is noted on the dorsal aspect of the PIP joint of the left middle finger. This is nontender to palpation and not fluctuant. Sensation is intact in all digits with a 2+ radial pulse and brisk capillary refill. IMAGING: Multiple views of the left middle finger were obtained in the office today and reviewed. This showed structures in satisfactory alignment with a soft tissue mass on the dorsum of the PIP of the left middle finger. IMPRESSION: Left middle finger PIP mass. PLAN: Left long finger mass excision with Dr. Gage. The patient's questions were answered and she would like to proceed. She will follow up postoperatively and call with questions or concerns otherwise. CHERIE MEDINA [id number]/CPS #: [id number] MTDD
[2019-09-17] MEDS ORDERED: Bupivacaine 0.5% SDV PF* 30ML VIAL ONE (13:17)
[2019-09-17] MEDS ORDERED: Lidocaine 1% INJ* 10 MG/ML 30 ML SDV ONE (13:49)
[2019-09-17] MEDS ORDERED: Bupivacaine 0.25% SDV* 30 ML ONE (13:49)
[2019-09-17] MEDS ORDERED: Bupivacaine 0.5%* 50 ML MDV VIAL ONE (13:52)
[2019-09-17 15:37] VITALS: BP 153/72
--- NOTE | 2019-09-18 13:41 | OP ---
DATE OF OPERATION: 09/17/19 - [facility] DATE OF : 44 SURGEON: Quirino Gage MD BIZTALK ADMINISTRATOR: CHERIE Neely ANESTHESIOLOGIST: None. ANESTHESIA: Digital block performed with 0.5% Marcaine. PRE-OP DIAGNOSIS: Left middle finger dorsal soft tissue mass. POST-OP DIAGNOSIS: Left middle finger dorsal soft tissue mass. OPERATIVE PROCEDURE: Excision of left middle finger dorsal soft tissue mass. INDICATIONS: Ms. Olson has the aforementioned mass. It is getting larger. It is firm. It causes some discomfort. She wanted to have it excised. We talked about risks and benefits and she wished to proceed. ESTIMATED BLOOD LOSS: 1 mL. COMPLICATIONS: None. FINDINGS: See above and below. DESCRIPTION OF PROCEDURE: Ms. Olson was seen in the preoperative holding area. The correct site, side, and procedure were identified. I performed a digital block with 0.5% Marcaine. We came to the operating room where the arm was prepped and draped in the usual fashion and a time-out was performed. I placed a digital tourniquet on the left middle finger. I made a little curvilinear incision on the dorsoradial aspect of the left middle finger PIP joint. Full-thickness flap was raised off the mass. It looked like it was a ganglion cyst. Marginal excision was performed. The cyst was emanating from the joint was opened longitudinally to gain access to the soft tissue deep to the tendon. Once I got deep to the tendon, I excised the remainder of the cyst and I cauterized the joint capsule with a Bovie. The longitudinal split in the tendon was repaired with a [id number] 4-0 PDS suture. The skin was closed with 4-0 nylon suture. Soft dressing was applied and she was taken to the recovery room in stable condition. [id number]/[facility] #: [id number] [facility]
== END 2019-09-17 15:38 | disposition home or self-care (01) ==
LOC: OR 11:18
PROVIDERS: ATTEND Orthopaedic Surgery Hand Surgery
DX: M67.442 Ganglion, left hand (principal); R42 Dizziness and giddiness; I10 Essential (primary) hypertension; I25.10 Atherosclerotic heart disease of native coronary artery without angina pectoris; E78.5 Hyperlipidemia, unspecified; G25.0 Essential tremor; Z87.891 Personal history of nicotine dependence; Z79.82 Long term (current) use of aspirin; Z88.1 Allergy status to other antibiotic agents; Z88.5 Allergy status to narcotic agent
CPT/HCPCS: 88304; J3490